=== PATIENT | male | born 1980 | race Caucasian/White ===

== ENCOUNTER 2024-04-09 10:51 | Emergency (ER) | payer MEDICARE, OTHER ==
[~2024-04-09] VITALS: Ht 182.9 cm; Wt 94.1 kg
[2024-04-09 10:57] VITALS: TEMP 97.8
[2024-04-09] MEDS ORDERED: fentaNYL 50 MCG/ML 2 ML VIAL IV ONE ×2 (11:30)
[2024-04-09] MEDS ORDERED: NS 1,000 ML IV ONE ×2 (11:30)
[2024-04-09 11:59] LABS: BASO # 0.1 K/mm3 (0.0-0.2); EOS # 0.2 K/mm3 (0.0-0.7); EOS % 1.8 % (0.0-4.0); GRAN # 7.8 K/mm3 (1.4-6.5); GRAN % 71.3 % (42.2-75.2); HEMATOCRIT 48.1 % (42.0-52.0); LYMPH % 18.5 % (20.0-51.0); MEAN CELL VOLUME 92 fl (80.0-100.0); MEAN CORPUSCULAR HEMOGLOBIN 31 pg (27-31); MEAN CORPUSCULAR HGB CONC 33 g/dl (33.0-37.0); MEAN PLATELET VOLUME 10.4 fl (7.4-10.4); MONO # 0.8 K/mm3 (0.1-0.6); MONO % 7.1 % (1.7-9.3); PLATELET COUNT 308 K/mm3 (130-400); RED BLOOD COUNT 5.22 M/mm3 (4.20-5.60); REDCELL DISTRIBUTION WIDTH-CV 12.6 % (11.5-14.5)
[2024-04-09 12:00] LABS: PH 5.5 (5.0-8.5); URINE APPEARANCE CLEAR (CLEAR/HAZY); URINE BLOOD NEGATIVE (NEGATIVE); URINE COLOR YELLOW (YELLOW); URINE GLUCOSE NEGATIVE (NEGATIVE); URINE KETONE NEGATIVE (NEGATIVE); URINE NITRATE NEGATIVE (NEGATIVE); URINE PROTEIN(semi-quant) NEGATIVE (NEGATIVE); URINE UROBILINOGEN 0.2 E.U/dL (0.2-1.0)
[2024-04-09] MEDS ORDERED: NS 100 ML IV SCH (12:00)
[2024-04-09] MEDS ORDERED: Iohexol 300 - 100 ML VIAL IV ONE (12:00)
[2024-04-09 12:15] LABS: COLLECTION METHOD CLEAN CATCH
[2024-04-09 12:23] LABS: ALBUMIN 4.4 g/dL (3.5-5.0); BILIRUBIN,TOTAL 0.5 mg/dL (0.2-1.2); C-REACTIVE PROTEIN 3.94 mg/dL (0.00-0.50); CALCIUM 10.5 mg/dL (8.4-10.2); CREATININE, serum 1.22 mg/dL (0.72-1.25); POTASSIUM 4.3 mEq/L (3.5-4.5); TOTAL PROTEIN 8.3 g/dl (6.2-8.1)
[2024-04-09] MEDS ORDERED: NORCO 325 MG-51 TAB PO (12:44)
[2024-04-09] MEDS ORDERED: CIPRO 500MG TA500 MG PO (12:44)
[2024-04-09] MEDS ORDERED: FLAGYL500 MG PO (12:44)
[2024-04-09 13:10] VITALS: BP 136/89; PULSE 78
== END 2024-04-09 12:30 | disposition home or self-care (01) ==
LOC: COL.ER 10:51
PROVIDERS: Emergency Medicine
DX: K57.32 Diverticulitis of large intestine without perforation or abscess without bleeding (principal); N28.89 Other specified disorders of kidney and ureter; F17.200 Nicotine dependence, unspecified, uncomplicated
CPT/HCPCS: J3010; J7030; Q9967

== ENCOUNTER 2024-06-18 09:47 | Observation (INO) | payer MEDICARE, OTHER ==
[2024-06-17 12:50] LABS: BASO # 0.1 K/mm3 (0.0-0.2); BASO % 1.4 % (0.0-2.0); EOS # 0.3 K/mm3 (0.0-0.7); EOS % 5.8 % (0.0-4.0); GRAN # 2.8 K/mm3 (1.4-6.5); GRAN % 49.1 % (42.2-75.2); HEMATOCRIT 47.7 % (42.0-52.0); HEMOGLOBIN 16.7 g/dl (13.5-18.0); LYMPH # 2.1 K/mm3 (1.2-3.4); LYMPH % 37.2 % (20.0-51.0); MEAN CELL VOLUME 89 fl (80.0-100.0); MEAN CORPUSCULAR HEMOGLOBIN 31 pg (27-31); MEAN CORPUSCULAR HGB CONC 35 g/dl (33.0-37.0); MEAN PLATELET VOLUME 10.3 fl (7.4-10.4); MONO # 0.4 K/mm3 (0.1-0.6); MONO % 6.3 % (1.7-9.3); PLATELET COUNT 250 K/mm3 (130-400); RED BLOOD COUNT 5.35 M/mm3 (4.20-5.60)
[2024-06-17 13:06] LABS: CALCIUM 9.9 mg/dL (8.4-10.2); CREATININE, serum 1.24 mg/dL (0.72-1.25); POTASSIUM 3.9 mEq/L (3.5-4.5)
[~2024-06-18] VITALS: Ht 180.3 cm; Wt 91.2 kg
[2024-06-18] VITALS (18 sets, daily range): BP systolic 96–133; BP diastolic 56–89; PULSE 48–72; TEMP 97–97.9
[~2024-06-18 09:47] MED LIST: CIPRO 500MG TA500 MG PO; FLAGYL500 MG PO; LR 1,000 ML IV SCH; NORCO 325 MG-51 TAB PO
[2024-06-18] MEDS ORDERED: Gabapentin 100 MG CAP PO SCH (10:00)
[2024-06-18] MEDS ORDERED: ceFAZolin 1 G in Water For Injection,Sterile 10 ML IV ONE (10:00)
[2024-06-18] MEDS ORDERED: Celecoxib 200 MG CAP PO SCH (10:00)
[2024-06-18] MEDS ORDERED: Acetaminophen 500 MG TAB PO SCH ×2 (10:00→17:14)
[2024-06-18] MEDS ORDERED: RISPERDAL 1M1 MG/TAB PO (10:36)
[2024-06-18] MEDS ORDERED: XANAX 1MG1 MG PO (10:36)
[2024-06-18] MEDS ORDERED: ADDERALL XR 10M10 MG PO (10:36)
[2024-06-18] MEDS ORDERED: fentaNYL 50 MCG/ML 1 ML SYRINGE/VIAL [PACU/SDC ONLY] IV PRN (14:00)
[2024-06-18] MEDS ORDERED: Ondansetron 4 MG/2 ML VIAL IV PRN ×2 (14:00→16:15)
[2024-06-18] MEDS ORDERED: HYDROmorphone 1 MG/1 ML SYRINGE [PACU/SDC ONLY] IV PRN (14:00)
[2024-06-18] MEDS ORDERED: Topical Skin Adhesive 1 EACH (1 ML) TOP ONE (15:44)
[2024-06-18] MEDS ORDERED: Glycopyrrolate 0.2 MG/ML 1 ML VIAL IV SCH (16:10)
[2024-06-18] MEDS ORDERED: oxyCODONE 5 MG TAB PO PRN ×2 (16:15)
[2024-06-18] MEDS ORDERED: Morphine 4 MG/ML VIAL IV PRN (16:15)
[2024-06-18] MEDS ORDERED: Naloxone 0.4 MG/ML VIAL IV PRN (16:15)
[2024-06-18] MEDS ORDERED: NORCO 325 MG-51 TAB PO (16:17)
--- NOTE | 2024-06-18 18:16 | NUR ---
PATIENT ARRIVED TO FLOOR FROM PACU AT 1715. VSS. POST OP VITALS STARTED. 5 LAP SITES W/ SKIN GLUE AND TIP DRAIN INTACKED, RED MINIMAL OUTPUT. PATIENT REPORTING PAIN 10/10. PAIN MEDS GIVEN ORDERED. PATIENT AWAKE DRINKING WATER CLEARS TRAY ON THE WAY FOR DINNER. PATIENT HAS NO OTHER REQUEST AT THIS TIME. FAMILY AT BEDSIDE
--- NOTE | 2024-06-18 20:30 | NUR ---
UPON SHIFT ASSESSMENT, LOU WAS EXPERIENCING 8/10 ABDOMINAL AND FLANK PAIN. POST -OP VITALS WNL. SURGICAL LAP SITES CDI WITH GLUE. TIP DRAIN WITH GAUZE SHOWS SCANT DRAINAGE. PATIENT NO LONGER EXPERIENCING PTSD RELATED ANXIETY. MORIN DRAINING SLOWLY AT 10ML AN HOUR. WILL BLADDER SCAN AND REASSESS. CALL LIGHT WITHIN REACH.
--- NOTE | 2024-06-18 20:34 | NUR ---
PATIENT HX OF PTSD AND EXHIBITS ANXIETY,-PROFANITY AND RESTLESSNESS, NO EYE CONTACT. PATIENT'S DAUGHTER ADVISED OF ONCOMING ANXIETY EPISODE, STATED, "HE IS GETTING THERE. THIS IS HOW HE ACTS.". CALL PLACED TO [facility]PITAL[facility]. BJ TO START PRN XANAX NOW, RATHER THAN 06/19/2024.
[2024-06-18] MEDS ORDERED: ALPRAZolam 0.5 MG TAB PO PRN (20:45)
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
[2024-06-18] MEDS ORDERED: Nicotine 21 MG DAILY PATCH TD ONE (21:00)
[2024-06-18] MEDS ORDERED: AMPHETAMINE SALTS 10 MG PO SCH (21:00)
--- NOTE | 2024-06-18 23:08 | NUR ---
PATIENT C/O OF 7/10 FLANK PAIN. PRN ROCHELLE GIVEN TIP DRAIN EMPTIED-80MLS DARK RED BLOOD.MINIMAL URINARY OUTPUT.
--- NOTE | 2024-06-18 23:34 | NUR ---
BLADDER SCANNED PATIENT 26MLS
[2024-06-19] VITALS (10 sets, daily range): BP systolic 106–125; BP diastolic 66–84; PULSE 53–76; TEMP 97.4–97.9
[2024-06-19 07:09] LABS: BASO # 0.1 K/mm3 (0.0-0.2); BASO % 0.8 % (0.0-2.0); EOS # 0.1 K/mm3 (0.0-0.7); EOS % 1.4 % (0.0-4.0); GRAN # 4.6 K/mm3 (1.4-6.5); GRAN % 72.4 % (42.2-75.2); LYMPH # 1.1 K/mm3 (1.2-3.4); LYMPH % 17.3 % (20.0-51.0); MEAN CELL VOLUME 92 fl (80.0-100.0); MEAN CORPUSCULAR HGB CONC 34 g/dl (33.0-37.0); MEAN PLATELET VOLUME 11.2 fl (7.4-10.4); MONO # 0.5 K/mm3 (0.1-0.6); MONO % 7.8 % (1.7-9.3); PLATELET COUNT 209 K/mm3 (130-400); RED BLOOD COUNT 3.96 M/mm3 (4.20-5.60); REDCELL DISTRIBUTION WIDTH-CV 12.2 % (11.5-14.5)
[2024-06-19 07:12] LABS: HEMATOCRIT 36.5 % (42.0-52.0); HEMOGLOBIN 12.3 g/dl (13.5-18.0); MEAN CORPUSCULAR HEMOGLOBIN 31 pg (27-31)
[2024-06-19 07:26] LABS: CALCIUM 8.5 mg/dL (8.4-10.2); CREATININE, serum 1.54 mg/dL (0.72-1.25); POTASSIUM 3.8 mEq/L (3.5-4.5)
--- NOTE | 2024-06-19 08:30 | NUR ---
Pt. sitting up in bed. Pt. is A&OX3, assessment complete. IV to rt. forearm patent, IV fluids infusing per orders. Pt. reported pain at a 10 on pain scale, gave meds per orders. Pt. denies further needs.
[2024-06-19] MEDS ORDERED: ALPRAZolam 0.5 MG TAB PO PRN (09:00)
[2024-06-19] MEDS ORDERED: risperiDONE 1 MG TAB PO SCH (09:00)
[2024-06-19] MEDS ORDERED: LR 1,000 ML IV SCH (09:00)
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
--- NOTE | 2024-06-19 12:45 | NUR ---
Scrap Charger met with patient to discuss discharge planning. Patient's girlfriend, Onel and daughter, Caitlin (ph#[phone]) are at bedside. Patient lives in [place] and gets most of his medications at [facility] in with the exception of his Aderall, which he fills at [facility] on [address] in [place]. Patient does not use any DME and is independent with ADLS. 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 Patient would like to complete a new DPOA-HC as his current one designates his ex-, who he does not want knowing he is in the hospital. SW assisted patient in completing the form and he chose to designate Onel and Caitlin. SW placed copy in chart and provided original and copies to patient. Discharge Plan: Home
[2024-06-19] MEDS ORDERED: oxyCODONE 5 MG TAB PO PRN (13:45)
--- NOTE | 2024-06-19 23:57 | NUR ---
PATIENT ALERT AND ORIENTED X4. VSS. PATIENT HERE FOR ROBOTIC PARTIAL NEPHRECTOMY. LAPS X3 CDI AND CHASSIS MECHANIC. OLD TIP SITE WITH GAUZE/TEGADERM WITH OLD DRAINAGE. PATIENT DENIES ANY PAIN AT THIS TIME. IV TO RIGHT FA INT AND FLUSHES WELL. PATIENT RESTING IN BED. NO FURTHER NEEDS. CALL LIGHT IN REACH.
[2024-06-20 00:25] VITALS: BP 96/62; PULSE 64; TEMP 98.8
[2024-06-20 00:31] VITALS: BP_SYST 96
[2024-06-20 04:15] VITALS: BP 93/60; PULSE 67; TEMP 99.2
[2024-06-20 04:48] VITALS: BP_SYST 93
[2024-06-20 07:36] VITALS: BP 124/75; PULSE 76; TEMP 98.4
[2024-06-20 08:00] VITALS: BP_SYST 124
--- NOTE | 2024-06-20 08:00 | NUR ---
SHIFT ASSESSMENT COMPLETED. VSS. PATIENT RESTING IN BED. PATIENT HAS BEEN AMBULATING OFTEN, BUT NO BM OR PASSING OF GAS. MEDS GIVEN TO HELP W/ BM'S. ALL MORNING MEDS GIVEN ORDERED. PATIENT STATES PAIN THIS AM 7/10 PAIN MEDS GIVEN ORDERED. PATIENT HAS NO OTHER REQUEST AT THIS TIME. CALL LIGHT IN REACH
[2024-06-20] MEDS ORDERED: Docusate Sodium 100 MG CAP PO ONE (09:15)
[2024-06-20] MEDS ORDERED: Magnes Hydrox (MOM) 80 MG/ML 30 ML CUP PO ONE (09:15)
--- NOTE | 2024-06-20 12:44 | NUR ---
D: Business Solutions Analyst stopped by room on rounds. A: Pt was resting and content with girlfriend in the room. [place]. Pt has no needs right now. P: Business Solutions Analyst informed pt that if he needed anything from the hospice clinical supervisor area to let his nurse know. Business Solutions Analyst will follow up as needed.
== END 2024-06-20 10:50 | disposition home or self-care (01) ==
LOC: SDCO 09:47 → SURG 17:50 → SDCO 06-19 14:46 → SURG 06-19 14:58
PROVIDERS: ADMIT Urology
DX: C64.2 Malignant neoplasm of left kidney, except renal pelvis (principal); F17.210 Nicotine dependence, cigarettes, uncomplicated
CPT/HCPCS: OP; A4314; A9284; G0378; J1171; J1920; J2270; J2405; J7120